=== PATIENT | female | born 1960 | race Caucasian/White ===

== ENCOUNTER 2017-05-29 10:20 | Emergency (ER) | payer MEDICAID ==
[~2017-05-29] VITALS: Ht 172.7 cm; Wt 86.2 kg
[2017-05-29 13:47] VITALS: BP 138/81
== END 2017-05-29 14:47 | disposition home or self-care (01) ==
LOC: ED 12:55
DX: K42.9 Umbilical hernia without obstruction or gangrene (principal); M16.11 Unilateral primary osteoarthritis, right hip
CPT/HCPCS: 72190; 99284

== ENCOUNTER 2017-10-17 08:09 | Inpatient (IN) | payer MEDICAID ==
[2017-10-15 10:11] LABS: BASOPHILS # (AUTO) 0.05 x10^3/uL (0-0.1); BASOPHILS % (AUTO) 1 % (0-1); EOSINOPHILS # (AUTO) 0.33 x10^3/uL (0-0.4); EOSINOPHILS % (AUTO) 3 % (1-7); LYMPHOCYTES # (AUTO) 3.18 x10^3/uL (1-3.4); LYMPHOCYTES % (AUTO) 31 % (22-44); MD NO; MEAN CORPUSCULAR HEMOGLOBIN 31.7 pg (27.0-34.8); MEAN CORPUSCULAR VOLUME 93.1 fL (80-100); MEAN PLATELET VOLUME 9.3 fL (7.4-10.4); MONOCYTES # (AUTO) 0.53 x10^3/uL (0.2-0.8); MONOCYTES % (AUTO) 5 % (2-9); NEUTROPHILS # (AUTO) 6.28 x10^3/uL (1.8-6.8); NEUTROPHILS % (AUTO) 61 % (42-75); PLATELET COUNT 277 x10^3/uL (130-400); RED BLOOD COUNT 4.99 x10^6/uL (3.82-5.3); RED CELL DISTRIBUTION WIDTH 13.9 % (9.6-15.2)
[2017-10-15 10:25] LABS: ANION GAP 4 mmol/L (5-15); CALCIUM 9.6 mg/dL (8.5-10.1); CHLORIDE 106 mmol/L (98-107)
[2017-10-15 10:29] LABS: ALANINE AMINOTRANSFERASE 23 U/L (12-78); ALKALINE PHOSPHATASE 92 U/L (45-117); BILIRUBIN,TOTAL 0.5 mg/dL (0.2-1.0); CREATININE 0.81 mg/dL (0.55-1.02); TOTAL PROTEIN 8.5 g/dL (6.4-8.2)
[2017-10-15 10:34] LABS: CULTURE INDICATED? YES; MICROSCOPIC INDICATED
[~2017-10-17] VITALS: Ht 170.2 cm; Wt 88.6 kg
[~2017-10-17 08:09] MED LIST: AMOX500T PO; EPINEPHRINE 1 MG/ML, 1ML ONE; GLYB5TAB3 PO; IBUP-1223 PO; KETOROLAC 60 MG/2 ML ONE; METF500T4 PO; ROPIvacaine/PF 0.5%, 20 ML ONE; SODIUM CHLORIDE 0.9% 100 ML ONE; TRANEXAMIC ACID 100 MG/ML, 10ML ONE
[2017-10-17] MEDS ORDERED: LACTATED RINGERS 1,000 ML IV SCH (08:37)
[2017-10-17] MEDS ORDERED: SCOPOLAMINE PATCH, 1.5MG PATCH.TD72 TD ONE (08:41)
[2017-10-17] MEDS ORDERED: VANCOMYCIN PER PHARMACY MC STA (08:53)
[2017-10-17 09:20] VITALS: BP 134/87
[2017-10-17] MEDS ORDERED: VANCOMYCIN 1,800 MG in SODIUM CHLORIDE 0.9% 250 ML IV ONE (09:30)
[2017-10-17] MEDS ORDERED: ONDANSETRON 2MG/ML, 2ML IVPush PRN (11:30)
[2017-10-17] MEDS ORDERED: FENTANYL PF 100 MCG/2ML IV PRN (11:30)
[2017-10-17] MEDS ORDERED: OXYcodone 5 MG/5 ML ORAL.SOL UDC PO PRN (11:30)
[2017-10-17] MEDS ORDERED: EPHEDRINE 50 MG/ML, 1ML IVPush PRN (11:30)
[2017-10-17] MEDS ORDERED: MEPERIDINE/PF 25MG/0.5ML IVPush PRN (11:30)
[2017-10-17] MEDS ORDERED: PROMETHAZINE 25 MG/ML, 1ML IV PRN (11:30)
[2017-10-17] MEDS ORDERED: METOPROLOL 1 MG/ML, 5ML IV PRN (11:30)
[2017-10-17] MEDS ORDERED: LABETALOL 5MG/ML, 20ML IV PRN (11:30)
[2017-10-17] MEDS ORDERED: ALBUTEROL SULFATE 2.5 MG/3 ML NPPB PRN (11:30)
[2017-10-17] MEDS ORDERED: hydrALAzine 20 MG/ML, 1ML IV PRN (11:30)
[2017-10-17] MEDS ORDERED: VANCOMYCIN 1,000 MG ONE (11:45)
[2017-10-17] MEDS ORDERED: MIDAZOLAM 1 MG/ML, 2ML ONE ×2 (11:49→13:47)
[2017-10-17] MEDS ORDERED: FENTANYL PF 250 MCG/5ML ONE (11:49)
[2017-10-17] MEDS ORDERED: GLYCOPYRROLATE 0.2MG/1ML, 5ML ONE (12:22)
[2017-10-17] MEDS ORDERED: NEOSTIGMINE 1 MG/ML, 10ML ONE (12:22)
[2017-10-17] MEDS ORDERED: ONDANSETRON 4 MG TABLET PO PRN (12:30)
[2017-10-17] MEDS ORDERED: ACETAMINOPHEN 650 MG/20.3 ML UDC PO PRN (12:30)
[2017-10-17] MEDS ORDERED: ONDANSETRON 2MG/ML, 2ML IV PRN (12:30)
[2017-10-17] MEDS ORDERED: SENNA/DOCUSATE TABLET PO PRN (12:30)
[2017-10-17] MEDS ORDERED: SCOPOLAMINE PATCH, 1.5MG PATCH.TD72 TD PRN ×2 (12:30→15:30)
[2017-10-17] MEDS ORDERED: HYDROcodone/APAP 5/325 TABLET PO PRN (12:30)
[2017-10-17] MEDS ORDERED: DIPHENHYDRAMINE 50 MG CAPSULE PO PRN (12:30)
[2017-10-17] MEDS ORDERED: MAGNESIUM HYDROXIDE 8%, 30ML UDC PO PRN (12:30)
[2017-10-17] MEDS ORDERED: BISACODYL 10 MG SUPP PR PRN (12:30)
[2017-10-17] MEDS ORDERED: ZOLPIDEM 5MG TABLET PO PRN (12:30)
[2017-10-17] MEDS ORDERED: CEFAZOLIN 1,000 MG ONE ×2 (12:48)
[2017-10-17] MEDS ORDERED: PROPOFOL 10 MG/ML, 20ML ONE (12:48)
[2017-10-17] MEDS ORDERED: ROCURONIUM 10 MG/ML,10ML ONE (12:48)
[2017-10-17] MEDS ORDERED: ONDANSETRON 2MG/ML, 2ML ONE ×2 (12:49)
[2017-10-17] MEDS ORDERED: HYDROmorphone 2 MG/ML, 1ML ONE ×2 (13:00→13:47)
[2017-10-17] MEDS ORDERED: OXYcodone 5 MG/5 ML ORAL.SOL UDC ONE (13:47)
[2017-10-17] MEDS: HYDROmorphone 1 MG/ML, 1ML IV PRN ×4 (13:50→14:19)
[2017-10-17] MEDS: MIDAZOLAM 1 MG/ML, 2ML IV PRN ×2 (13:52→14:04)
[2017-10-17] MEDS ORDERED: DIAZEPAM 5 MG/ML, 10ML VIAL IV PRN (14:30)
[2017-10-17] MEDS ORDERED: DIPHENHYDRAMINE 25 MG CAPSULE PO PRN (15:30)
[2017-10-17] MEDS ORDERED: ACETAMINOPHEN 325 MG TABLET PO PRN (15:30)
[2017-10-17] MEDS: INSULIN REGULAR 100 UNITS/ML, 3ML VIAL SQ-INSULIN SCH ×2 (17:22→21:41)
[2017-10-17] MEDS: NS + 20MEQ KCL 1,000 ML IV SCH (17:22)
[2017-10-17] MEDS: OXYcodone IR 5MG TABLET PO PRN ×2 (17:53→21:57)
[2017-10-17] MEDS: ASPIRIN 81 MG TABLET EC PO SCH (17:53)
[2017-10-17] MEDS: CEFAZOLIN PMX 2GM/50ML 50 ML IVPB SCH (19:59)
[2017-10-17 20:40] VITALS: BP 134/69
[2017-10-17] MEDS: DOCUSATE 100 MG CAPSULE PO SCH (21:00)
[2017-10-17] MEDS: HYDROXYZINE PAMOATE 25MG CAP PO PRN (21:57)
[2017-10-17 23:27] VITALS: BP 120/60
[2017-10-18] MEDS: NS + 20MEQ KCL 1,000 ML IV SCH ×2 (00:36→05:07)
[2017-10-18] MEDS: OXYcodone IR 5MG TABLET PO PRN ×5 (02:51→18:40)
[2017-10-18 02:55] VITALS: BP 127/76
[2017-10-18] MEDS ORDERED: OXYC5TAB2 PO (03:53)
[2017-10-18] MEDS ORDERED: TRAM50TA2 PO (03:55)
[2017-10-18] MEDS ORDERED: MELO7.5T31 PO (03:56)
[2017-10-18] MEDS ORDERED: ONDA4TAB7 PO (03:56)
[2017-10-18] MEDS: CEFAZOLIN PMX 2GM/50ML 50 ML IVPB SCH (04:02)
[2017-10-18] MEDS: ASPIRIN 81 MG TABLET EC PO SCH ×2 (06:00→17:58)
[2017-10-18] MEDS ORDERED: DEXAMETHASONE 4 MG/ML, 1ML IVPush SCH (06:00)
[2017-10-18] MEDS: INSULIN REGULAR 100 UNITS/ML, 3ML VIAL SQ-INSULIN SCH ×4 (06:34→20:00)
[2017-10-18 07:30] VITALS: BP 135/68
[2017-10-18] MEDS: DOCUSATE 100 MG CAPSULE PO SCH ×2 (08:10→21:00)
[2017-10-18] MEDS: HYDROXYZINE PAMOATE 25MG CAP PO PRN ×2 (10:22→17:59)
[2017-10-18 14:00] VITALS: BP 130/66
[2017-10-18 19:35] VITALS: BP 124/78
[2017-10-19] MEDS: NS + 20MEQ KCL 1,000 ML IV SCH (00:21)
[2017-10-19] MEDS: OXYcodone IR 5MG TABLET PO PRN ×3 (00:35→08:49)
[2017-10-19] MEDS: HYDROXYZINE PAMOATE 25MG CAP PO PRN (01:05)
[2017-10-19 01:32] VITALS: BP 125/75
[2017-10-19] MEDS: ASPIRIN 81 MG TABLET EC PO SCH (05:25)
[2017-10-19] MEDS: INSULIN REGULAR 100 UNITS/ML, 3ML VIAL SQ-INSULIN SCH ×2 (07:52→11:25)
[2017-10-19 08:06] VITALS: BP 111/69
[2017-10-19] MEDS: DOCUSATE 100 MG CAPSULE PO SCH (08:49)
[2017-10-19 10:43] VITALS: BP 117/80
== END 2017-10-19 11:15 | disposition home or self-care (01) | DRG 470 ==
LOC: ORIP 08:09 → 4NOR 15:09
PROVIDERS: ADMIT Orthopaedic Surgery; ATTEND Orthopaedic Surgery
PROC: 0SR902Z Replacement of Right Hip Joint with Metal on Polyethylene Synthetic Substitute, Open Approach (ICD-10-PCS; principal; 2017-10-17 12:50)
DX: M16.11 Unilateral primary osteoarthritis, right hip (principal); E02 Subclinical iodine-deficiency hypothyroidism; E11.9 Type 2 diabetes mellitus without complications; K02.9 Dental caries, unspecified; Z72.0 Tobacco use; F41.9 Anxiety disorder, unspecified; F32.9 Major depressive disorder, single episode, unspecified
CPT/HCPCS: 36415; 72170; 76000; 80053; 81001; 82962; 85014; 85018; 85025; 86850; 86900; 87081; 87086; 93005; C1713; J0171; J0690; J1100; J1170; J1815; J1885; J2250; J2405; J2704; J2710; J2795; J3010; J3370; J3480; J3490; C1776; J7050; J7120; Q0163